=== PATIENT | female | born 1990 | race Caucasian/White ===

== ENCOUNTER 2018-02-04 04:31 | Emergency (ER) | payer OTHER ==
[~2018-02-04] VITALS: Ht 157.5 cm; Wt 61.4 kg
[2018-02-04 04:39] VITALS: TEMP 97.9
[2018-02-04 05:03] LABS: HEMATOCRIT 40.5 % (37.0-47.0); HEMOGLOBIN 12.9 g/dl (12.5-16.0); MEAN CELL VOLUME 90 fl (80.0-100.0); MEAN CORPUSCULAR HEMOGLOBIN 29 pg (27.0-31.0); MEAN CORPUSCULAR HGB CONC 32 g/dl (33.0-37.0); MEAN PLATELET VOLUME 9.1 fl (7.4-10.4); PLATELET COUNT 261 K/mm3 (130-400); RED BLOOD COUNT 4.52 M/mm3 (4.10-5.30); REDCELL DISTRIBUTION WIDTH-CV 15.3 % (11.5-14.5)
[2018-02-04 05:13] LABS: ALBUMIN 3.9 gm/dL (3.5-5.0); BILIRUBIN,TOTAL 0.2 mg/dL (0.0-1.0); CALCIUM 8.7 mg/dL (8.4-10.2); CREATININE, serum 0.51 mg/dL (0.52-1.25); POTASSIUM 3.7 mmol/L (3.4-5.0); TOTAL PROTEIN 6.9 gm/dL (6.4-8.2)
[2018-02-04 05:19] LABS: EOSINOPHIL 4 % (0-4); NEUTROPHILS 32 % (42.0-75.2)
[2018-02-04 05:20] LABS: ANISOCYTOSIS 1+; HYPOCHROMIA 2+
[2018-02-04 05:21] LABS: LYMPHOCYTE 59 % (20.0-51.0); PLATELET ESTIMATE NORMAL (NORMAL)
[2018-02-04] MEDS ORDERED: NEXIUM 40MG40 MG PO (05:42)
[2018-02-04] MEDS ORDERED: PHENERGAN 25 TA25 MG PO (05:42)
[2018-02-04 06:02] LABS: COLLECTION METHOD CLEAN CATCH
[2018-02-04 06:07] LABS: MUCOUS Present /lpf; PH 5 (5-8); URINE APPEARANCE Clear; URINE BACTERIA None Seen /hpf; URINE BILIRUBIN Negative (NEGATIVE); URINE BLOOD Negative (NEGATIVE); URINE COLOR Yellow; URINE GLUCOSE Negative (NEGATIVE); URINE KETONE Negative (NEGATIVE); URINE LEUKOCYTE ESTERASE Trace (NEGATIVE); URINE NITRATE Negative (NEGATIVE); URINE PROTEIN(semi-quant) Negative (NEGATIVE); URINE RBC 0-2 /hpf; URINE UROBILINOGEN Negative (NEGATIVE)
[2018-02-04 06:21] VITALS: BP 101/63; PULSE 64
[2018-02-04 08:31] LABS: PATHOLOGY DIFF REVIEW OK
== END 2018-02-04 06:28 | disposition home or self-care (01) ==
LOC: COL.ER 04:31
PROVIDERS: Emergency Medicine
DX: R10.13 Epigastric pain (principal)
CPT/HCPCS: C9113; J0780; J3010; J7030